=== PATIENT | male | born 1975 | race Caucasian/White ===

== ENCOUNTER 2016-04-04 09:20 | Emergency (ER) | payer SELFPAY ==
--- NOTE | ~2016-04-04 | CR210 ---
[facility] A Service of [facility] & [facility] RADIOLOGY TEXT RESULTS PATIENT: DUANE GUERRERO LOCATION: [facility] : 79 UNIT #: [id number] AGE: [address]: Lori Dawkins SEX: M ORDER DR: [id number] [facility] [address] [place], [place] [address] [id number] E MR#: [id number] Acc #: [id number] NAME: DUANE GUERRERO : 1975 SEX: M STUDY DATE/TIME: 04/04/2016 9:03 UNIT: [facility] ROOM: STUDY DESCRIPTION: CR Ribs Uni 2 View W PA Ch Lt Attending Physician: Lori Dawkins P.A.-C. Ordering Physician: Lori Dawkins P.A.-C. Primary Care Physician: Feliciano Saenz M.D. MEDICAL IMAGING REPORT This report is preliminary unless electronic signature is present EXAM Chest and left ribs, 04/04. INDICATION Left side rib pain this morning after falling off a ladder. FINDINGS PA chest x-ray was obtained in addition to a left rib series. Comparison made with chest x-ray from 07/14/2012. Cardiac and mediastinal contours are normal. The lungs are clear. There is no pneumothorax. There is a left lateral 11th rib fracture. No other rib fractures are seen. IMPRESSION Left lateral 11th rib fracture. No pneumothorax. Otherwise negative exam. Dictated by... Toney Richter Jr., M.D. THIS IS AN ELECTRONICALLY VERIFIED REPORT Toney Richter Jr., M.D. at 04/04/2016 3:50 PM ONDINA/paulina TD: 04/04/2016 10:47 JOB #: [id number] MEDICAL IMAGING REPORT COPY
[~2016-04-04 09:20] MED LIST: AMOXIL500 M1 PO; ANTIVERT PO; CLEOCIN PO; FIORICET 50-321 EACH PO; FLEXERIL10 MG PO; HYDROCODON-ACE1 EAC7 PO; KEFLEX PO; LORTAB 7.51 TAB 7.5/ PO; NO MEDICATIONS; PEN-VEE K PO; VIBRAMYCIN100 M1 PO; VICODIN 5/1 TAB 5/50 PO; VICODIN 5/500 T1 TAB PO
== END 2016-04-04 10:00 | disposition home or self-care (01) ==
LOC: CFTX 09:20
DX: S22.32XA Fracture of one rib, left side, initial encounter for closed fracture (principal); R03.0 Elevated blood-pressure reading, without diagnosis of hypertension; F17.210 Nicotine dependence, cigarettes, uncomplicated; Z91.041 Radiographic dye allergy status; W18.39XA Other fall on same level, initial encounter; Y92.098 Other place in other non-institutional residence as the place of occurrence of the external cause
CPT/HCPCS: 71101; 99283

== ENCOUNTER 2016-04-06 12:41 | Emergency (ER) | payer SELFPAY ==
--- NOTE | ~2016-04-06 | CR72 ---
[facility] A Service of [facility] & [facility] RADIOLOGY TEXT RESULTS PATIENT: DUANE GUERRERO LOCATION: [facility] : 79 UNIT #: [id number] AGE: [address]: Myron Bailon MD SEX: M ORDER DR: [id number] [facility] [address] [place], [place] [address] [id number] E MR#: [id number] Acc #: [id number] NAME: DUANE GUERRERO. : 1975 SEX: M STUDY DATE/TIME: 04/06/2016 12:51 UNIT: [facility] ROOM: STUDY DESCRIPTION: CR Chest Single View Portable Attending Physician: Myron Bailon M.D. Ordering Physician: Myron Bailon M.D. Primary Care Physician: Feliciano Saenz M.D. MEDICAL IMAGING REPORT This report is preliminary unless electronic signature is present EXAM AP portable chest. HISTORY Shortness of breath, left-sided rib pain after a fall on April 04. TECHNIQUE AP view of the chest was obtained with an additional view of the apices. FINDINGS Cardiac size is normal. Lungs are clear. The visualized bony structures are intact. CONCLUSION Negative chest. Dictated by... Esa Washington M.D. THIS IS AN ELECTRONICALLY VERIFIED REPORT Esa Washington M.D. at 04/07/2016 4:45 PM JOSE/paulina TD: 04/06/2016 17:14 JOB #: [id number] MEDICAL IMAGING REPORT COPY
--- NOTE | ~2016-04-06 | EKG ---
PATIENT: DUANE GUERRERO UNIT #: [id number] Ventricular Rate: 65 BPM Atrial Rate: 65 BPM P-R Interval: 164 ms QRS Duration: 104 ms Q-T Interval: 378 ms QTC Calculation(Bezet): 393 ms P Foster: 31 degrees Calculated R Foster: 11 degrees Calculated T Foster: 29 degrees Diagnosis Line: Normal sinus rhythm Diagnosis Line: Incomplete right bundle branch block Diagnosis Line: Otherwise normal ECG Diagnosis Line: When compared with ECG of 14-JUL-2012 16:02, Diagnosis Line: No significant change was found Diagnosis Line: Confirmed by EFRAIN CLOUD MD ([id number]) on 04/06/2016 Diagnosis Line: 6:27:20 PM INTERPRETING MD: AI EDWARD
[2016-04-06 13:22] LABS: BASOPHIL% 0.6 % (0-2.5); EOSINOPHIL# 0.2 X10e3 (0-0.7); EOSINOPHIL% 2.5 % (0.0-7.0); HEMATOCRIT 40.5 % (38.0-50.0); HEMOGLOBIN 13.4 gm/dL (13.0-16.0); LYMPHOCYTE# 1.9 X10e3 (1.0-3.5); LYMPHOCYTE% 24.5 % (17.0-45.0); MEAN CELL VOLUME 87.5 FL (83-96); MEAN CORPUSCULAR HGB CONC 33.1 g/dL (30-36); MEAN PLATELET VOLUME 7.5 FL (6.5-11.5); MONOCYTE# 0.6 X10e3 (0-1.0); MONOCYTE% 7.8 % (3.0-12.0); NEUTROPHIL# 5.1 X10e3 (1.5-7.1); NEUTROPHIL% 64.6 % (40-75); PLATELET COUNT 329 X10e3 (140-420); RED BLOOD COUNT 4.63 X10e (3.90-5.60); RED CELL DISTRIBUTION WIDTH 14.5 % (11.0-15.5); WHITE BLOOD COUNT 7.8 X10e3 (4.0-10.5)
[2016-04-06 13:24] LABS: DIFF IND NO
[2016-04-06 13:37] LABS: POC - CKMB 1.1 ng/mL (0.0-7.9); POC - TROPONIN <0.05 ng/mL (<=0.05)
[2016-04-06 13:52] LABS: ALBUMIN SERUM 4.4 g/dL (3.5-5.0); ALKALINE PHOSPHATASE 93 U/L (32-92); ALT (SGPT) 20 U/L (10-40); AST (SGOT) 18 U/L (10-42); BILIRUBIN, DIRECT 0.1 mg/dL (0.0-0.2); BILIRUBIN,INDIRECT 0.2 mg/dL (0.0-0.9); BILIRUBIN,TOTAL 0.3 mg/dL (0.2-2.0); BLOOD UREA NITROGEN 10 mg/dL (9-23); BUN/CREATININE RATIO 11.11; CALCIUM SERUM 9.3 mg/dL (8.4-10.2); CARBON DIOXIDE 27 mmol/L (22-31); CHLORIDE 105 mmol/L (100-111); CREATININE SERUM 0.9 mg/dL (0.6-1.4); GLOM FILT RATE Estimated ABOVE60 mL/min (>60); GLUCOSE FASTING 92 mg/dL (70-110); POTASSIUM 4.1 mmol/L (3.5-5.1); PROTEIN TOTAL SERUM 7.2 g/dL (6.0-8.3); SODIUM 140 mmol/L (135-145)
[2016-04-06 13:55] LABS: PARTIAL THROMBOPLASTIN TIME 29.2 SECONDS (23.5-31.3); PROTHROMBIN TIME (PATIENT) 10.5 SECONDS (9.6-11.5)
== END 2016-04-06 14:37 | disposition home or self-care (01) ==
LOC: CED 12:41
PROVIDERS: Emergency Medicine
DX: S22.32XA Fracture of one rib, left side, initial encounter for closed fracture (principal); Z88.8 Allergy status to other drugs, medicaments and biological substances; W18.30XA Fall on same level, unspecified, initial encounter
CPT/HCPCS: 36415; 71010; 80048; 80076; 82553; 84484; 85025; 85379; 85610; 85730; 93005; 94010; 99284

== ENCOUNTER 2016-06-28 08:56 | Emergency (ER) | payer SELFPAY ==
--- NOTE | ~2016-06-28 | CR142 ---
[facility] A Service of [facility] & [facility] RADIOLOGY TEXT RESULTS PATIENT: DUANE GUERRERO LOCATION: [facility] : 79 UNIT #: [id number] AGE: [address]: Chelsea Larson SEX: M ORDER DR: [id number] [facility] [address] [place], [place] [address] [id number] E MR#: [id number] Acc #: [id number] NAME: DUANE GUERRERO : 1975 SEX: M STUDY DATE/TIME: 06/28/2016 10:15 UNIT: [facility] ROOM: STUDY DESCRIPTION: CR Hand Min 3 Views Rt Attending Physician: Chelsea Larson Pa-C Ordering Physician: Chelsea Larson Pa-C Primary Care Physician: Feliciano Saenz M.D. MEDICAL IMAGING REPORT This report is preliminary unless electronic signature is present EXAM Right hand, 06/28/16 INDICATIONS Pain and swelling with difficulty moving hand since this morning. No trauma. FINDINGS Please use standard normal for a right hand. Dictated by... Toney Richter Jr., M.D. THIS IS AN ELECTRONICALLY VERIFIED REPORT Toney Richter Jr., M.D. at 06/28/2016 6:33 PM ONDINA/nataliya TD: 06/28/2016 12:54 JOB #: [id number] MEDICAL IMAGING REPORT Page 1 of 1 COPY
== END 2016-06-28 11:35 | disposition home or self-care (01) ==
LOC: CED 08:56
DX: M65.841 Other synovitis and tenosynovitis, right hand (principal); F17.200 Nicotine dependence, unspecified, uncomplicated; Z91.041 Radiographic dye allergy status
CPT/HCPCS: 29125; 73130; 96372; 99283; J1885